=== PATIENT | female | born 1995 | race Caucasian/White ===

== ENCOUNTER 2016-12-05 22:29 | Emergency (ER) | payer OTHER ==
[~2016-12-05] VITALS: Ht 175.3 cm; Wt 102.0 kg
[~2016-12-05 22:29] MED LIST: NOHOMEMEDS
[2016-12-06] MEDS ORDERED: KEFLEX500 MG PO (01:25)
[2016-12-06 02:20] VITALS: BP 160/93
== END 2016-12-06 02:21 | disposition home or self-care (01) ==
LOC: EXP 22:29 → EME 22:29 → EXP 12-06 02:21
PROC: 0HQLXZZ Repair Left Lower Leg Skin, External Approach (ICD-10-PCS; principal; 2016-12-05)
DX: S81.012A Laceration without foreign body, left knee, initial encounter (principal); W26.0XXA Contact with knife, initial encounter
CPT/HCPCS: 99281; 99284

== ENCOUNTER 2018-05-21 11:26 | Inpatient (IN) | payer OTHER ==
[~2018-05-21] VITALS: Ht 175.3 cm; Wt 97.9 kg
[~2018-05-21 11:26] MED LIST changes: +KEFLEX500 MG PO
[2018-05-21 12:00] LABS: BASOPHIL (%) 0.6 % (0-1); EOSINOPHIL (%) 1.1 % (0-5); EOSINOPHIL COUNT 0.1 K/uL (0-0.3); HEMATOCRIT 38.5 % (36.0-46.0); HEMOGLOBIN 12.1 G/DL (11.9-15.5); IMMATURE GRANULOCYTE (%) 0.3 % (0.0-0.7); LYMPHOCYTE (%) 22.5 % (15-42); LYMPHOCYTE COUNT 1.6 K/uL (1.0-2.8); MCH 22.9 PG (29.0-34.0); MCHC 31.4 G/DL (30.0-36.0); MCV 72.8 FL (83-99); MONOCYTE (%) 5.5 % (3-12); MONOCYTE COUNT 0.4 K/uL (0-0.8); PLATELET COUNT 344 K/uL (156-360); RBC DIS.WIDTH-CV 15.6 % (11.8-14.6); RBC DIS.WIDTH-SD 40.4 % (39-53); RED BLOOD COUNT 5.29 M/uL (3.80-5.20); WHITE BLOOD COUNT 7.1 K/uL (4.1-10.2)
[2018-05-21 12:09] LABS: CHLORIDE 106 mEq/L (99-109)
[2018-05-21 12:10] LABS: POTASSIUM 4.4 mEq/L (3.7-5.4); SODIUM 141 mEq/L (136-147)
[2018-05-21 12:11] LABS: GLUCOSE 102 mg/dL (70-99)
[2018-05-21 12:12] LABS: APPEARANCE CLOUDY ((CLEAR)); BILIRUBIN NEGATIVE; BLOOD NEGATIVE; COLOR YELLOW ((YELLOW)); GLUCOSE (STRIP) NEGATIVE; KETONES NEGATIVE; LEUKOCYTES NEGATIVE; NITRITE NEGATIVE; PROTEIN (STRIP) 30; SPECIFIC GRAVITY 1.019 (1.000-1.030); UROBILINOGEN 0.2 MG/DL (0.2-1.0)
[2018-05-21 12:14] LABS: SERUM ETHYL ALCOHOL < 10 mg/dL
[2018-05-21 12:15] LABS: CREATININE 0.7 mg/dL (0.6-1.3); GFR ESTIMATE (CALCULATED) > 59 mL/min/
[2018-05-21 12:16] LABS: UREA NITROGEN (BUN) 8 mg/dL (9-23)
[2018-05-21 12:21] LABS: AMPHETAMINE NEGATIVE (500 ng/mL); BARBITURATES NEGATIVE (200 ng/mL); BENZODIAZEPINES NEGATIVE (150 ng/mL); BUPRENORPHINE NEGATIVE (10 ng/mL); COCAINE NEGATIVE (150 ng/mL); METHADONE NEGATIVE (200 ng/mL); METHAMPHETAMINE NEGATIVE (500 ng/mL); OPIATES (MORPHINE) NEGATIVE (100 ng/mL); OXYCODONE NEGATIVE (100 ng/mL); PHENCYCLIDINE NEGATIVE (25 ng/mL); PROPOXYPHENE NEGATIVE (300 ng/mL); THC CANNABINOIDS NEGATIVE (50 ng/mL); TRICYCLIC ANTIDEPRESSANTS NEGATIVE (300 ng/mL)
[2018-05-21 12:23] LABS: QUANTITATIVE HCG < 4.0 MIU/ML
[2018-05-21 12:32] LABS: AMORPHOUS PHOSPHATE CRYSTALS 2+; BACTERIA NONE SEEN /HPF; EPITHELIAL CELLS RARE /HPF; MUCUS NONE SEEN /LPF; RED BLOOD CELLS NONE SEEN /HPF (0-5); WHITE BLOOD CELLS NONE SEEN /HPF (0-5)
[2018-05-21 16:27] VITALS: BP 149/79
[2018-05-22 07:59] VITALS: BP 120/72
[2018-05-22 16:10] VITALS: BP 131/70
[2018-05-23 07:51] VITALS: BP 124/76
[2018-05-23 16:21] VITALS: BP 146/72
[2018-05-24 08:30] VITALS: BP 135/68
[2018-05-24 15:54] VITALS: BP 135/68
[2018-05-25 08:16] VITALS: BP 147/81
[2018-05-25 16:51] VITALS: BP 130/67
[2018-05-26 07:45] VITALS: BP 128/58
[2018-05-26] MEDS ORDERED: OXCARBAZEPINE300 MG PO (09:13)
[2018-05-26] MEDS ORDERED: ARIPIPRAZOLE10 MG PO (09:13)
== END 2018-05-26 13:21 | disposition home or self-care (01) | DRG 885 ==
LOC: EME 11:26 → EDOF 13:38 → 1WEST 13:38 → ENRESERV 14:08 → 1WEST 14:34
PROVIDERS: Emergency Medicine
DX: F31.81 Bipolar II disorder (principal); R45.851 Suicidal ideations; F10.20 Alcohol dependence, uncomplicated; F12.90 Cannabis use, unspecified, uncomplicated; F17.200 Nicotine dependence, unspecified, uncomplicated; I10 Essential (primary) hypertension; F41.9 Anxiety disorder, unspecified
CPT/HCPCS: 80048; 81003; 84702; 85025; 90839; 97150 GO; 97166 GO; 99281; 99284; G0480

== ENCOUNTER 2018-06-03 22:14 | Emergency (ER) | payer OTHER ==
[~2018-06-03] VITALS: Ht 175.3 cm; Wt 102.2 kg
[~2018-06-03 22:14] MED LIST changes: +ARIPIPRAZOLE10 MG PO; +OXCARBAZEPINE300 MG PO
[2018-06-03 22:51] LABS: ALBUMIN 4.5 g/dL (3.2-4.8); CHLORIDE 105 mEq/L (99-109); POTASSIUM 4.2 mEq/L (3.7-5.4); SODIUM 140 mEq/L (136-147)
[2018-06-03 22:53] LABS: GLUCOSE 115 mg/dL (70-99); TOTAL PROTEIN 7.4 g/dL (6.4-8.3)
[2018-06-03 22:55] LABS: TOTAL BILIRUBIN 0.2 mg/dL (0.0-1.0)
[2018-06-03 22:57] LABS: ALKALINE PHOSPHATASE 85 IU/L (3-129); CREATININE 0.8 mg/dL (0.6-1.3); GFR ESTIMATE (CALCULATED) > 59 mL/min/
[2018-06-03 22:58] LABS: UREA NITROGEN (BUN) 7 mg/dL (9-23)
[2018-06-03 22:59] LABS: AST (GOT) 36 IU/L (2-34)
[2018-06-03 23:00] LABS: ALT (GPT) 40 IU/L (3-49)
[2018-06-03 23:01] LABS: APPEARANCE CLOUDY ((CLEAR)); BILIRUBIN NEGATIVE; BLOOD NEGATIVE; COLOR YELLOW ((YELLOW)); GLUCOSE (STRIP) NEGATIVE; KETONES NEGATIVE; LEUKOCYTES NEGATIVE; NITRITE NEGATIVE; PROTEIN (STRIP) NEGATIVE; SPECIFIC GRAVITY 1.016 (1.000-1.030); UROBILINOGEN 0.2 MG/DL (0.2-1.0)
[2018-06-03 23:04] LABS: HEMATOCRIT 35.2 % (36.0-46.0); HEMOGLOBIN 10.9 G/DL (11.9-15.5); MCH 23.1 PG (29.0-34.0); MCV 74.6 FL (83-99); PLATELET COUNT 390 K/uL (156-360); RBC DIS.WIDTH-CV 16.6 % (11.8-14.6); RBC DIS.WIDTH-SD 44.7 % (39-53); RED BLOOD COUNT 4.72 M/uL (3.80-5.20); WHITE BLOOD COUNT 9.1 K/uL (4.1-10.2)
[2018-06-03 23:07] LABS: QUANTITATIVE HCG < 4.0 MIU/ML
[2018-06-03 23:24] LABS: BACTERIA NONE SEEN /HPF; EPITHELIAL CELLS NONE SEEN /HPF; MUCUS TRACE /LPF; RED BLOOD CELLS 0-5 /HPF (0-5); UCUL ADDED? NO; WHITE BLOOD CELLS 0-5 /HPF (0-5)
[2018-06-04] MEDS ORDERED: ZOFRAN4 MG PO (01:11)
[2018-06-04 01:28] VITALS: BP 135/96
== END 2018-06-04 01:33 | disposition home or self-care (01) ==
LOC: EME 22:14
DX: K59.00 Constipation, unspecified (principal); E86.0 Dehydration; I10 Essential (primary) hypertension; F31.9 Bipolar disorder, unspecified; F32.9 Major depressive disorder, single episode, unspecified; Z87.891 Personal history of nicotine dependence; Z88.8 Allergy status to other drugs, medicaments and biological substances
CPT/HCPCS: 80053; 81003; 84702; 85027; 99281; 99284

== ENCOUNTER 2018-07-22 18:32 | Emergency (ER) | payer OTHER ==
[~2018-07-22] VITALS: Ht 175.3 cm; Wt 100.0 kg
[~2018-07-22 18:32] MED LIST changes: +ZOFRAN4 MG PO
[2018-07-22 20:38] VITALS: BP 142/87
== END 2018-07-22 20:39 | disposition home or self-care (01) ==
LOC: EME 18:32
PROC: 0HQFXZZ Repair Right Hand Skin, External Approach (ICD-10-PCS; principal; 2018-07-22)
DX: S61.411A Laceration without foreign body of right hand, initial encounter (principal); W25.XXXA Contact with sharp glass, initial encounter; Y93.G1 Activity, food preparation and clean up
CPT/HCPCS: 99281; 99284